=== PATIENT | female | born 1945 | race Caucasian/White ===

== ENCOUNTER 2020-10-06 08:21 | Inpatient (IN) | payer OTHER ==
[~2020-10-06] VITALS: Ht 162.6 cm; Wt 60.8 kg
[2020-10-06 08:39] VITALS: BP 170/96
[2020-10-06] MEDS ORDERED: VENTOLIN HFA 1818 GM INH (08:44)
[2020-10-06] MEDS ORDERED: K-DUR 20 MEQ T20 MEQ PO (08:44)
[2020-10-06] MEDS ORDERED: FOLIC ACID1 MG PO (08:45)
[2020-10-06 09:17] LABS: CALCIUM 8.8 mg/dL (8.5-10.1); CREATININE 0.9 mg/dL (0.6-1.3); POTASSIUM 3.6 mmol/L (3.5-5.1)
--- NOTE | 2020-10-06 09:19 | EKG ---
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 Lateral ischemia cannot be excluded. No previous ECG available for comparison Consider right arm left arm lead misplacement. Electronically Signed On 10-06-2020 9:18:44 CDT by Demetrio Farah [email or web address] <ELECTRONICALLY SIGNED> By: Boaz Farah MD, [facility] 10/06/20 0918 0850 0850 Boaz Farah MD, [facility] /EPI
[2020-10-06 09:20] LABS: ABSOLUTE BASOPHILS 0.1 thou/uL (0.0-0.2); ABSOLUTE EOSINOPHILS 0.2 thou/uL (0.0-0.7); ABSOLUTE LYMPHOCYTES 1.4 thou/uL (0.8-5.3); ABSOLUTE MONOCYTES 0.5 thou/uL (0.0-1.2); ABSOLUTE NEUTROPHILS 3.8 thou/uL (1.6-8.1); BASOPHILS 1.2 %; EOSINOPHILS 2.7 %; HEMATOCRIT 47.5 % (37.0-47.0); HEMOGLOBIN 16.4 gm/dL (12.0-15.0); LYMPHOCYTES 22.9 %; MCH 32.6 pg (26.0-34.0); MCHC 34.4 g/dL (28.0-37.0); MCV 94.6 fL (80.0-100.0); MONOCYTES 9.1 %; MPV 9.5 fl. (7.2-11.1); NUCLEATED RBCS 0 /100WBC; PLATELET COUNT* 152 thou/uL (150-400); POLYS 64.1 %; RBC 5.02 mil/uL (4.20-5.00); RDW-CV 15.5 % (10.5-14.5)
[2020-10-06 15:15] VITALS: BP 160/100
[2020-10-06 21:32] LABS: BE -3.5 mmol/L (-2 to +3); PCO2 24.1 mmHg (35.0-45.0); pH 7.482 (7.340-7.450)
[2020-10-06 21:36] LABS: PO2 58.5 mmHg (75.0-100.0)
[2020-10-06 23:33] LABS: BE -2.9 mmol/L (-2 to +3); PO2 76.3 mmHg (75.0-100.0); pH 7.446 (7.340-7.450)
[2020-10-07 01:11] LABS: TC:HDL 2.2 Ratio (Not establshd); TRIGLYCERIDE 52 mg/dL (<150); VLDL 10 mg/dL (<40)
[2020-10-07 01:12] LABS: CHOLESTEROL 133 mg/dL (<200); HDL CHOLESTEROL 60 mg/dL (>40); LDL CHOLESTEROL 63 mg/dL (<100)
[2020-10-07 01:14] LABS: SERUM ASSESSMENT CLEAR
[2020-10-07 01:22] LABS: INR 1.1; PROTIME 11.7 Seconds (9.20-11.50)
[2020-10-07 05:00] VITALS: BP 156/96
[2020-10-07 09:00] VITALS: BP 186/90
[2020-10-07 10:10] LABS: ABSOLUTE BASOPHILS 0.1 thou/uL (0.0-0.2); ABSOLUTE LYMPHOCYTES 0.9 thou/uL (0.8-5.3); ABSOLUTE MONOCYTES 0.4 thou/uL (0.0-1.2); ABSOLUTE NEUTROPHILS 6.2 thou/uL (1.6-8.1); BASOPHILS 0.9 %; EOSINOPHILS 0.1 %; HEMATOCRIT 48.2 % (37.0-47.0); HEMOGLOBIN 16.2 gm/dL (12.0-15.0); LYMPHOCYTES 12.4 %; MCH 32.3 pg (26.0-34.0); MCHC 33.7 g/dL (28.0-37.0); MCV 95.8 fL (80.0-100.0); MONOCYTES 5.8 %; MPV 10.1 fl. (7.2-11.1); NUCLEATED RBCS 0 /100WBC; PLATELET COUNT* 161 thou/uL (150-400); POLYS 80.8 %; RBC 5.03 mil/uL (4.20-5.00); RDW-CV 15.3 % (10.5-14.5); WBC 7.7 thou/uL (4.0-11.0)
[2020-10-07 10:31] LABS: ALBUMIN 3.4 g/dL (3.4-5.0); CALCIUM 8.5 mg/dL (8.5-10.1); CREATININE 1.1 mg/dL (0.6-1.3); POTASSIUM 3.9 mmol/L (3.5-5.1); TOTAL BILIRUBIN 0.8 mg/dL (<0.1-1.0); TOTAL PROTEIN 6.9 g/dL (6.4-8.2)
[2020-10-07 13:22] LABS: BE -1.6 mmol/L (-2 to +3); PCO2 29.7 mmHg (35.0-45.0); pH 7.461 (7.340-7.450)
[2020-10-07 13:28] LABS: PO2 55.6 mmHg (75.0-100.0)
[2020-10-07 13:30] VITALS: BP 150/94
[2020-10-07 17:00] VITALS: BP 147/92
[2020-10-07 20:00] VITALS: BP 137/88
[2020-10-07 20:43] VITALS: BP 147/92
[2020-10-08 00:46] VITALS: BP 144/84
--- NOTE | 2020-10-08 02:27 | NUR ---
PT ADMIT TO 2 EAST RM 227. PT ALERT ORIENTED. UP WITH STD BY ASSIST. TELEMETRY SHOWS SR. DENIES PAIN. O2 AT 15 LITERS HIGH FLOW. BIPAP HS.
[2020-10-08 04:10] VITALS: BP 165/95
--- NOTE | 2020-10-08 07:15 | NUR ---
CHNAGE OF SHIFT REPORT GIVEN PATIENT SEEN AT BEDSIDE IN BED WATCHING TV ASSUMED PATIENT CARE
[2020-10-08 08:00] VITALS: BP 147/88
[2020-10-08 12:00] VITALS: BP 167/93
--- NOTE | 2020-10-08 14:26 | NUR ---
CM ASSESSMENT: PT A&O, INDEPENDENT WITH ADL'S, AND ACTIVE. 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 PT USES THE [employer] BUS FOR 'S APPTS. PT RESIDES AT HOME ALONE. PT USES 5L O2 AT BASELINE PROVIDED BY [facility]. PT HAS 0 HX OF HH. PT HAS PAST HX OF SNF OVER A YEAR AGO BEFORE SHE MOVED HER TO [place]. NO CM D/C PLANNING NEEDS ANTICIPATED. CM WILL REMAIN AVAILABLE TO ASSIST AND FOLLOW NEEDED.
[2020-10-08 16:00] VITALS: BP 148/83
[2020-10-08 20:00] VITALS: BP 154/92
[2020-10-09] VITALS: BP 157/89
[2020-10-09 04:00] VITALS: BP 150/93
[2020-10-09 04:07] LABS: HEMOGLOBIN 15.6 gm/dL (12.0-15.0); MCH 32.5 pg (26.0-34.0); MCHC 33.9 g/dL (28.0-37.0); MCV 95.8 fL (80.0-100.0); MPV 9.8 fl. (7.2-11.1); NUCLEATED RBCS 0 /100WBC; PLATELET COUNT* 160 thou/uL (150-400); RBC 4.81 mil/uL (4.20-5.00); RDW-CV 15.2 % (10.5-14.5); WBC 8.9 thou/uL (4.0-11.0)
[2020-10-09 04:17] LABS: ALBUMIN 2.8 g/dL (3.4-5.0); CALCIUM 8.3 mg/dL (8.5-10.1); CREATININE 0.8 mg/dL (0.6-1.3); POTASSIUM 4.5 mmol/L (3.5-5.1); TOTAL BILIRUBIN 0.4 mg/dL (<0.1-1.0); TOTAL PROTEIN 6.2 g/dL (6.4-8.2)
--- NOTE | 2020-10-09 04:21 | NUR ---
PT ALERT ORIENTED ANXIOUS. ON 15 L HIGH FLOW NC. DENIES PAIN. SR BBB. UP WITH ONE PERSON ASSIST TO BSC.
[2020-10-09 04:58] LABS: ABSOLUTE LYMPHOCYTES 0.4 thou/uL (0.8-5.3); ABSOLUTE MONOCYTES 0.2 thou/uL (0.0-1.2); ABSOLUTE NEUTROPHILS 8.4 thou/uL (1.6-8.1); PLATELET ESTIMATE ADEQUATE
[2020-10-09 07:29] LABS: PCO2 27.7 mmHg (35.0-45.0); pH 7.437 (7.340-7.450)
[2020-10-09 09:00] VITALS: BP 120/72
[2020-10-09 12:00] VITALS: BP 135/76
--- NOTE | 2020-10-09 14:22 | NUR ---
PLAN OF CARE: PHYSICIAN INFORMS THAT THE PT IS NOT MEDICALLY STABLE AT THIS TIME. PT CONTINUES TO HAVE INCREASED OXYGEN NEEDS. PT NOW ON 15L O2, AND IS ON 5L O2 AT BASELINE AT HOME. PT'S DTR REQUEST HH FOR THE PT AT D/C, AND PT MAY BENEFIT FROM THIS AT D/C. CM WILL REMAIN AVAILABLE TO ASSIST AND FOLLOW WITH D/C PLANNING NEEDED.
[2020-10-09 16:00] VITALS: BP 150/94
[2020-10-09 20:00] VITALS: BP 145/82
[2020-10-10 01:08] VITALS: BP 158/82
[2020-10-10 04:58] VITALS: BP 147/83
--- NOTE | 2020-10-10 08:11 | NUR ---
PT ALERT ORIENTED. UP TO BSC WITH STD BY ASSIST. TRAINING EXECUTIVE TRACING SR. DENIES PAIN. O2 AT 15 LITERS HIGH FLOW. BIPAP HS.
--- NOTE | 2020-10-10 10:14 | NUR ---
CM UPDATE: PT REMAINS ON 15L HIGH FLOW O2 AND ONLY USED 5L O2 AT BASELINE PRIOR TO ADMIT PROVIDED BY [facility]. D/C PLANNING NEEDS FOR THIS PT ARE TBD AT THIS TIME. CM PROVIDED HH INFO TO PT'S DTR PER HER REQUEST. CM WILL REMAIN AVAILABLE TO ASSIST AND FOLLOW NEEDED.
[2020-10-10 12:06] VITALS: BP 153/86
--- NOTE | 2020-10-10 15:59 | NUR ---
Was contacted by daughter, Brittney (Dada Ott regarding stroke education provided to her mother, Laurel. Ms. Ott has requested that information regarding care be directed to her, the dtr, because her mother misinterpreted the information provided to her. Ms. Ott also reported that she had knowledge of stroke and did not require further information at this time. I assured her that I would put a note on her Mother's chart indicating this request and this was done shortly after the call, I also informed Case Management, and the RN caring for the patient at the time-10/10/20, 1600.
[2020-10-10 16:36] VITALS: BP 158/91
[2020-10-10 20:00] VITALS: BP 136/84
[2020-10-11 00:52] VITALS: BP 153/106
[2020-10-11 04:25] VITALS: BP 142/80
--- NOTE | 2020-10-11 05:50 | NUR ---
ASSUMED PT CARE AT 1910. NURSING ASSESSMENT COMPLETED AT START OF SHIFT. PT VOICED NO CONCERNS. SR ON DEFENSIVE LINE COACH. CALL LIGHT WITHIN REACH. FALL PRECAUTIONS IN PLACE.
[2020-10-11 08:00] VITALS: BP 136/95
[2020-10-11 12:01] VITALS: BP 129/83
[2020-10-11 12:02] LABS: BE 0.1 mmol/L (-2 to +3); PCO2 29.8 mmHg (35.0-45.0); pH 7.487 (7.340-7.450)
[2020-10-11 12:04] LABS: PO2 54.9 mmHg (75.0-100.0)
--- NOTE | 2020-10-11 15:12 | NUR ---
PLAN OF CARE: PHYSICIAN INFORMS THAT THE PT IS NOT MEDICALLY STABLE AT THIS TIME. PT REMAINS ON 15L HIGH FLOW O2, AND ONLY USED 5L O2 AT BASELINE. CM WILL REMAIN AVAILABLE TO ASSIST AND FOLLOW NEEDED.
--- NOTE | 2020-10-11 16:43 | 2DMMODE ---
[place] [address] 2 D/M-MODE ECHOCARDIOGRAM Name: JOSE LUIS WHYTE Room: [facility] ADM IN [facility]#: [id number] Admission: 10/07/20 Attend Phys: Kavon Renteria Discharge: Date of : 43 Date of Service: 10/11/20 1643 Report #: [id number] THIS REPORT FOR: cc: Jenni Branch MD, Kandice L. MD Liston, Michael J. MD [facility] ~ ADDENDUM APPROVED REPORT Study performed: 10/08/2020 10:50:28 EXAM: Comprehensive 2D, Doppler, and color-flow Echocardiogram Patient Location: In-Patient Room #: 227 Status: routine BSA: 1.59 HR: 82 bpm BP: 165/95 mmHg Rhythm: NSR Other Information Study Quality: Good Indications Pulmonary Embolism Dyspnea Echo Enhancing Agent Indication: Rule out Shunt Agent(s) / Amount(s) Used: Agitated Saline 10 cc 2D Dimensions IVSd: 10.05 (7-11mm) LVOT Diam: 19.64 (18-24mm) LVDd: 40.51 mm PWd: 8.62 (7-11mm) Ascending Ao: 30.44 (22-36mm) LVDs: 29.07 (25-40mm) Aortic Root: 33.36 mm Volumes Left Atrial Volume (Systole) LA ESV Index: 33.40 mL/m2 Aortic Valve AoV Peak Nils.: 0.82 m/s AO Peak Gr.: 2.68 mmHg LVOT Max P.[address] [address] 2 D/M-MODE ECHOCARDIOGRAM Name: ISABELLJOSE LUIS Tesha Room: [address] IN [facility]#: [id number] Admission: 10/07/20 Attend Phys: Kavon Renteria Discharge: Date of : 43 Date of Service: 10/11/20 1643 Report #: [id number] Mean Gr.: 1.59 mmHg LVOT Mean P.80 mmHg LVOT Max V: 0.58 m/s AO V2 VTI: 12.63 cm LVOT Mean V: 0.42 m/s BE (VTI): 2.78 cm2 LVOT V1 VTI: 11.59 cm Mitral Valve E/A Ratio: 0.60 MV E Max Nils.: 0.64 m/s TDI E/Lateral E': 10.67 Lateral E' Nils.: 0.06 m/s Pulmonary Valve PV Peak Nils.: 0.72 m/s PV Peak Gr.: 2.06 mmHg Tricuspid Valve RAP Estimate: 5.00 mmHg TR Peak Gr.: 74.32 mmHg RVSP: 79.00 mmHg PA Pressure: 79.00 mmHg Left Ventricle The left ventricle is normal size. There is normal LV segmental wall motion. There is normal left ventricular wall thickness. Left ventricular systolic function is normal. The left ventricular ejection fraction is within the normal range. LVEF is 50-55%. Grade I - abnormal relaxation pattern. Right Ventricle Right ventricle is moderately dilated. Right ventricle is moderately hypokinetic. Right heart pacing catheter is noted Atria The left atrium size is normal. There is significant and prompt right to left shunting noted with the injection of agitated saline contrast suggesting significant PFO or atrial septal defect. Right atrium is mildly dilated. Aortic Valve The aortic valve is normal in structure. No aortic regurgitation is present. There is no aortic valvular stenosis. Mitral Valve The mitral valve is normal in structure. Mild mitral regurgitation. No evidence [place] [address] 2 D/M-MODE ECHOCARDIOGRAM Name: JOSE LUIS WHYTE Room: [address] IN [facility]#: [id number] Admission: 10/07/20 Attend Phys: Kavon Renteria Discharge: Date of : 43 Date of Service: 10/11/20 1643 Report #: [id number] Tricuspid Valve The tricuspid valve is normal in structure. Moderate tricuspid regurgitation. The RVSP is 75 consistent with severe pulmonary hypertension Pulmonic Valve The pulmonary valve is normal in structure. Trace pulmonic regurgitation. Great Vessels The aortic root is normal in size. IVC is normal in size and collapses >50% with inspiration. Pericardium There is no pericardial effusion. <Conclusion> The left ventricle is normal size. There is normal left ventricular wall thickness. Left ventricular systolic function is normal. The left ventricular ejection fraction is within the normal range. LVEF is 50-55%. Right ventricle is moderately dilated. Right ventricle is moderately hypokinetic. The left atrium size is normal. Right atrium is mildly dilated. The aortic valve is normal in structure. The mitral valve is normal in structure. Mild mitral regurgitation. The tricuspid valve is normal in structure. Moderate tricuspid regurgitation. The RVSP is 75 consistent with severe pulmonary hypertension IVC is normal in size and collapses >50% with inspiration. There is no pericardial effusion. There is normal LV segmental wall motion. Right heart pacing catheter is noted There is significant and prompt right to left shunting noted with the injection of agitated saline contrast suggesting significant PFO or atrial septal defect. <ELECTRONICALLY SIGNED> By: Sarwat Ashton MD, FACC 10/11/20 1643 164 164 Sarwat Ashton MD, FACC /INF
[2020-10-11 19:37] VITALS: BP 148/89
[2020-10-11 20:15] VITALS: BP 154/95
[2020-10-12 04:05] VITALS: BP 142/91
[2020-10-12 04:59] LABS: HEMATOCRIT 49.2 % (37.0-47.0); HEMOGLOBIN 16.7 gm/dL (12.0-15.0); MCH 32.2 pg (26.0-34.0); MCHC 33.9 g/dL (28.0-37.0); MCV 95.1 fL (80.0-100.0); MPV 9.8 fl. (7.2-11.1); RBC 5.17 mil/uL (4.20-5.00); RDW-CV 15.6 % (10.5-14.5); WBC 6.9 thou/uL (4.0-11.0)
[2020-10-12 05:13] LABS: CALCIUM 8.4 mg/dL (8.5-10.1); CREATININE 0.9 mg/dL (0.6-1.3); POTASSIUM 4.5 mmol/L (3.5-5.1)
--- NOTE | 2020-10-12 05:17 | NUR ---
PT A&O X 4. O2 SAT 90% ON 4OL VIA HHF THEN BIPAP @ NOC. NO C/O PAIN. MEDS GIVEN ORDERED. UP TO BSC WITH SBA. CALL LIGHT WITHIN REACH. WILL CONTINUE TO MONITOR.
[2020-10-12 08:00] VITALS: BP 144/83
[2020-10-12 12:00] VITALS: BP 155/80
--- NOTE | 2020-10-12 15:01 | NUR ---
PLAN OF CARE: PHYSICIAN INFORMS OF PLAN FOR THE PT TO REMAIN INPT THROUGH THE WEEKEND. PT REMAINS TELE STATUS AND ON 40L OXYGEN AND 99% FIO2. CM D/C PLANNING NEEDS FOR THE PT REMAIN TBD AT THIS TIME. CM WILL REMAIN AVAILABLE TO ASSIST AND FOLLOW NEEDED.
[2020-10-12 18:06] LABS: ANA INTERPRETATION Negative (())
[2020-10-12 20:00] VITALS: BP 160/89
[2020-10-13] VITALS (8 sets, daily range): BP systolic 135–177; BP diastolic 78–118
[2020-10-13 04:30] LABS: MCH 31.6 pg (26.0-34.0); MCHC 33.3 g/dL (28.0-37.0); MCV 94.8 fL (80.0-100.0); MPV 9.6 fl. (7.2-11.1); RBC 5.38 mil/uL (4.20-5.00); RDW-CV 15.1 % (10.5-14.5); WBC 8.5 thou/uL (4.0-11.0)
[2020-10-13 04:36] LABS: CREATININE 0.8 mg/dL (0.6-1.3); POTASSIUM 4.6 mmol/L (3.5-5.1)
[2020-10-14 03:59] VITALS: BP 154/87
--- NOTE | 2020-10-14 04:41 | NUR ---
ASSUMED PT CARE AT APPROX 1930. PT IS AWAKE AND ORIENTED X4, FORGETFUL AT TIMES. PT IS TRACING SR ON THE NITROGLYCERIN NEUTRALIZER. O2 SUPPORT MAINTAINED AT 15L/HFC TO KEEP sPO2 >90%. PT DESATURATES TO THE MID 80'S WITH ACTIVITY. PT ENCOURAGED TO TAKE SLOW DEEP BREATHS. PT IS CLOSELY MONITORED. FALL PRECAUTIONS IN PLACE. CALL LIGHT WITHI REACH.
[2020-10-14 09:00] VITALS: BP 147/84
[2020-10-14 12:19] VITALS: BP 115/69
[2020-10-14 16:00] VITALS: BP 145/74
[2020-10-14 20:00] VITALS: BP 132/72
[2020-10-15] VITALS: BP 151/832
[2020-10-15 04:00] VITALS: BP 145/88
--- NOTE | 2020-10-15 06:35 | NUR ---
ASUSMED PT CARE AT APPROX 1930. PT IS AWAKE AND ORIENTED X4. PT IS TRACING SR ON THE COMPUTER HELP DESK REPRESENTATIVE. PT IS KEPT ON 10L OF O2/HFC TO KEEP spO2 >92%, PT STILL DESATURATES TO THE MID 80'S WITH ACTIVITY. NO ACUTE CHANGES THIS SHIFT. CALL LIGHT WITHIN REACH. HOURLY ROUNDING DONE FOR PT SAFETY.FALL PRECAUTIONS IN PLACE.
[2020-10-15 08:00] VITALS: BP 128/67; BP 154/93
[2020-10-15 12:00] VITALS: BP 137/76
[2020-10-15 13:18] LABS: ABSOLUTE LYMPHOCYTES 0.1 thou/uL (0.8-5.3); ABSOLUTE MONOCYTES 0.5 thou/uL (0.0-1.2); ABSOLUTE NEUTROPHILS 9.4 thou/uL (1.6-8.1); BASOPHILS 0.4 %; EOSINOPHILS 0.1 %; HEMOGLOBIN 16.9 gm/dL (12.0-15.0); LYMPHOCYTES 1.4 %; MCH 31.4 pg (26.0-34.0); MCHC 33.1 g/dL (28.0-37.0); MCV 94.8 fL (80.0-100.0); MONOCYTES 4.8 %; MPV 9.3 fl. (7.2-11.1); NUCLEATED RBCS 0 /100WBC; PLATELET COUNT* 177 thou/uL (150-400); POLYS 93.3 %; RBC 5.38 mil/uL (4.20-5.00); RDW-CV 15.7 % (10.5-14.5); WBC 10.1 thou/uL (4.0-11.0)
--- NOTE | 2020-10-15 13:30 | NUR ---
PLAN OF CARE: PHYSICIAN INFORMS THAT THE PT IS NOT MEDICALLY STABLE FOR D/C AT THIS TIME. PT REMAINS ON 10L-15L O2, AND ONLY USES 5L O2 AT BASELINE AT HOME. PT CONTINUES TO HAVE INCREASED O2 NEEDS WITH ACTIVITY. PT/OT/ST DEBBIE COMPLETED AND INPT ARU CONSULT PENDING. PULM CONSULTED. CM D/C PLANNING NEEDS TBD AT THIS TIME. CM WILL REMAIN AVAILABLE TO ASSIST AND FOLLOW NEEDED.
[2020-10-15 13:33] LABS: ALBUMIN 3.1 g/dL (3.4-5.0); CREATININE 0.8 mg/dL (0.6-1.3); MAGNESIUM 2.2 mg/dL (1.8-2.4); POTASSIUM 4.4 mmol/L (3.5-5.1); TOTAL BILIRUBIN 1.2 mg/dL (<0.1-1.0); TOTAL PROTEIN 6.1 g/dL (6.4-8.2)
--- NOTE | 2020-10-15 13:58 | NUR ---
Nutrition: Pt admitted with dyspnea, pulmonary emboli. Seen for LOS. Pt eating well on heart healthy diet. She had a few questions over low Na diet - we discussed. All questions answered today. Wt: 125#. Meds, labs noted. H/o COPD. Assessed at low nutrition risk.
[2020-10-15 16:00] VITALS: BP 153/84
[2020-10-15 20:00] VITALS: BP 134/77
[2020-10-16 00:29] VITALS: BP 146/82
[2020-10-16 03:47] VITALS: BP 155/84
[2020-10-16 04:25] LABS: HEMATOCRIT 48.7 % (37.0-47.0); HEMOGLOBIN 16.2 gm/dL (12.0-15.0); MCH 31.4 pg (26.0-34.0); MCHC 33.2 g/dL (28.0-37.0); MCV 94.5 fL (80.0-100.0); MPV 9.7 fl. (7.2-11.1); NUCLEATED RBCS 0 /100WBC; PLATELET COUNT* 176 thou/uL (150-400); RBC 5.16 mil/uL (4.20-5.00); RDW-CV 15.3 % (10.5-14.5); WBC 7.8 thou/uL (4.0-11.0)
[2020-10-16 04:29] LABS: ALBUMIN 2.9 g/dL (3.4-5.0); CREATININE 0.9 mg/dL (0.6-1.3); MAGNESIUM 2.1 mg/dL (1.8-2.4); POTASSIUM 4.4 mmol/L (3.5-5.1); TOTAL BILIRUBIN 1.1 mg/dL (<0.1-1.0); TOTAL PROTEIN 5.6 g/dL (6.4-8.2)
--- NOTE | 2020-10-16 05:47 | NUR ---
ASSUMED PT CARE AT APPROX 1930. PT IS AWAKE AND ORIENTED X4, PT IS TRACING SR ON THE MAINSPRING TORQUE TESTER. O2 SUPPORT MAINTAINED AT 15L/HFC TO KEEP sPO2 >90%. PT DESATURATES TO THE MID 80'S WITH ACTIVITY. PT ENCOURAGED TO TAKE SLOW DEEP BREATHS. PT IS CLOSELY MONITORED. FALL PRECAUTIONS IN PLACE. CALL LIGHT WITHI REACH.
[2020-10-16 05:56] LABS: ABSOLUTE LYMPHOCYTES 0.3 thou/uL (0.8-5.3); ABSOLUTE NEUTROPHILS 7.5 thou/uL (1.6-8.1); ANISOCYTOSIS 1+; PLATELET ESTIMATE ADEQUATE; POIKILOCYTOSIS 1+
[2020-10-16 08:15] VITALS: BP 132/78
[2020-10-16 12:00] VITALS: BP 148/81
--- NOTE | 2020-10-16 14:56 | NUR ---
PLAN OF CARE: PHYSICIAN INFORMS OF PLAN FOR THE PT TO D/C TO SNF WHEN PT MORE MEDICALLY STABLE AND ABLE TO WEAN DOWN PT'S OXYGEN NEEDS. CM TO DISCUSS THIS WITH THE PT AND HER DTR. CM WILL REMAIN AVAILABLE TO ASSIST AND FOLLOW NEEDED.
[2020-10-16 16:00] VITALS: BP 136/82
[2020-10-16 20:00] VITALS: BP 162/92
[2020-10-17] VITALS: BP 152/93
[2020-10-17 04:00] VITALS: BP 166/88
[2020-10-17 04:20] LABS: ABSOLUTE LYMPHOCYTES 0.3 thou/uL (0.8-5.3); ABSOLUTE MONOCYTES 0.3 thou/uL (0.0-1.2); ABSOLUTE NEUTROPHILS 7.9 thou/uL (1.6-8.1); BASOPHILS 0.1 %; HEMATOCRIT 45.9 % (37.0-47.0); HEMOGLOBIN 15.8 gm/dL (12.0-15.0); LYMPHOCYTES 3.4 %; MCH 32.1 pg (26.0-34.0); MCHC 34.4 g/dL (28.0-37.0); MCV 93.5 fL (80.0-100.0); MONOCYTES 3.3 %; MPV 9.2 fl. (7.2-11.1); NUCLEATED RBCS 0 /100WBC; PLATELET COUNT* 166 thou/uL (150-400); POLYS 93.2 %; RBC 4.92 mil/uL (4.20-5.00); RDW-CV 14.9 % (10.5-14.5); WBC 8.5 thou/uL (4.0-11.0)
[2020-10-17 04:34] LABS: ALBUMIN 2.8 g/dL (3.4-5.0); CALCIUM 7.9 mg/dL (8.5-10.1); CREATININE 0.9 mg/dL (0.6-1.3); MAGNESIUM 2.2 mg/dL (1.8-2.4); POTASSIUM 4.7 mmol/L (3.5-5.1); TOTAL BILIRUBIN 1.3 mg/dL (<0.1-1.0); TOTAL PROTEIN 5.2 g/dL (6.4-8.2)
--- NOTE | 2020-10-17 06:31 | NUR ---
NO ACUTE CHANGES THIS SHIFT. PT IS AWAKE AND ORIENTED X4, PT IS TRACING SR ON THE INSURANCE CLAIMS CLERK. O2 SUPPORT MAINTAINED AT 15L/HFC TO KEEP sPO2 >90%. PT DESATURATES TO THE MID 80'S WITH ACTIVITY. PT ENCOURAGED TO TAKE SLOW DEEP BREATHS. PT IS CLOSELY MONITORED. FALL PRECAUTIONS IN PLACE. CALL LIGHT WITHIN REACH.
[2020-10-17 08:00] VITALS: BP 137/76
--- NOTE | 2020-10-17 11:18 | NUR ---
ASSUMED CARE OF PT AT 0730. PT A&0X4, DENIES ANY PAIN OR SHORTNESS OF BREATH AT THIS TIME. TRACING SR ON THE LINEMAN A CLASS. ON 15L HIGH FLOW NC SAT 92%. PT UP AD KATHERINE BSC. PULM CONSULT IN PLACE. PT GOAL FOR TODAY IS INCREASE ACTIVITY, TITRATE OXYGEN AND IV STEROIDS. AM ASSESSMENT CHARTED. MEDICATIONS PER MAY. PT REPOSITIONS SELF WITH REMINDERS. HOURLY ROUNDING OBSERVED. BED IN LOW POSITION. CALL LIGHT WITHIN REACH. WILL CONTINUE PLAN OF CARE.
[2020-10-17 12:00] VITALS: BP 135/89
--- NOTE | 2020-10-17 15:20 | NUR ---
PLAN OF CARE: PHYSICIAN INFORMS THAT PT IS NOT MEDICALLY STABLE AT THIS TIME. PT REMAINS ON 15L O2. PT WILL LIKELY NEED SNF WHEN MEDICALLY STABLE AND ABLE TO WEAN HER O2 NEEDS DOWN UNDER 10L. CM WILL REMAIN AVAILABLE TO ASSIST AND FOLLOW NEEDED.
[2020-10-17 16:00] VITALS: BP 143/79
[2020-10-17 20:00] VITALS: BP 122/82
[2020-10-18] VITALS (7 sets, daily range): BP systolic 128–150; BP diastolic 75–93
[2020-10-18 05:10] LABS: ALBUMIN 3.1 g/dL (3.4-5.0); CALCIUM 8.3 mg/dL (8.5-10.1); CREATININE 0.9 mg/dL (0.6-1.3); MAGNESIUM 2.3 mg/dL (1.8-2.4); POTASSIUM 4.5 mmol/L (3.5-5.1); TOTAL BILIRUBIN 1.1 mg/dL (<0.1-1.0); TOTAL PROTEIN 5.9 g/dL (6.4-8.2)
--- NOTE | 2020-10-18 07:02 | NUR ---
NO ACUTE CHANGES THIS SHIFT. PT IS AWAKE AND ORIENTED X4, PT IS TRACING SR ON THE SENIOR COST ACCOUNTANT. O2 SUPPORT MAINTAINED AT 15L/HFC TO KEEP sPO2 >90%. PT DESATURATES TO THE MID 80'S WITH ACTIVITY. PT ENCOURAGED TO TAKE SLOW DEEP BREATHS. PT IS CLOSELY MONITORED. FALL PRECAUTIONS IN PLACE. CALL LIGHT WITHIN REACH.
--- NOTE | 2020-10-18 11:18 | NUR ---
ASSUMED CARE OF PT AT 0730. PT A&0X4, DENIES ANY PAIN OR SHORTNESS OF BREATH AT THIS TIME. TRACING SR ON THE FLASK CLEANER. ON 15L HIGH FLOW NC SAT LOW 90'S. PT WORKED WITH PHYSICAL THERAPY THIS AM AND PER PHYSICAL THERAPIST-PT WAS VERY UNSTEADY WITH AND WITHOUT WALKER- USING WALL TO BALANCE SELF. EDUCATION GIVEN TO PT REGARDING CALLING FOR ASSIST AND BED ALARM PLACED. PT GOAL FOR TODAY IS CALL FOR ASSIST, TITRATE OXYGEN AND INCREASE ACTIVITY. AM ASSESSMENT CHARTED. MEDICATIONS PER MAY. PT REPOSITIONS SELF. HOURLY ROUNDING OBSERVED. BED IN LOW POSITION. BED ALARM IN PLACE. FALL PRECAUTIONS IN PLACE. CALL LIGHT WITHIN REACH. WILL CONTINUE PLAN OF CARE.
--- NOTE | 2020-10-18 15:05 | NUR ---
THIS HEAD BUCKER IS IN AGREEMENT WITH DOCUMENTED TX NOTE BY SAFIA MELGOZA FOR THIS DAY. TERESA PEREST
--- NOTE | 2020-10-18 15:26 | NUR ---
PLAN OF CARE: PHYSICIAN INFORMS THAT THE PT IS NOT MEDICALLY STABLE AT THIS TIME. CM TO SEND PRELIMINARY INFO TO [facility] TO DETERMINE ABILITY TO GET LTACH PLACEMENT FOR THE PT. CM WILL REMAIN AVAILABLE TO ASSIST AND FOLLOW NEEDED.
[2020-10-19] VITALS: BP 151/88
[2020-10-19 04:00] VITALS: BP 134/74
--- NOTE | 2020-10-19 04:06 | NUR ---
PT ALERT ORIENTED. UP WITH STD BY ASSIST TO BSC. O2 IS AT 15 LITERS HIGH FLOW. O2 SAT 90%
[2020-10-19 04:45] LABS: ABSOLUTE LYMPHOCYTES 0.5 thou/uL (0.8-5.3); ABSOLUTE MONOCYTES 0.6 thou/uL (0.0-1.2); ABSOLUTE NEUTROPHILS 8.6 thou/uL (1.6-8.1); BASOPHILS 0.1 %; EOSINOPHILS 0.1 %; HEMATOCRIT 47.8 % (37.0-47.0); LYMPHOCYTES 5.3 %; MCH 31.8 pg (26.0-34.0); MCHC 33.5 g/dL (28.0-37.0); MCV 94.9 fL (80.0-100.0); MONOCYTES 6.4 %; MPV 9.3 fl. (7.2-11.1); NUCLEATED RBCS 0 /100WBC; PLATELET COUNT* 164 thou/uL (150-400); POLYS 88.1 %; RBC 5.04 mil/uL (4.20-5.00); RDW-CV 15.2 % (10.5-14.5); WBC 9.8 thou/uL (4.0-11.0)
[2020-10-19 04:57] LABS: CALCIUM 8.2 mg/dL (8.5-10.1); CREATININE 0.9 mg/dL (0.6-1.3); MAGNESIUM 2.2 mg/dL (1.8-2.4)
[2020-10-19 08:00] VITALS: BP 115/64
[2020-10-19 12:00] VITALS: BP 113/57
--- NOTE | 2020-10-19 15:28 | NUR ---
PLAN OF CARE: PHYSICIAN INFORMS OF PLAN FOR THE PT TO D/C TO SNF PENDING ABILITY TO WEAN PT'S OXYGEN DOWN UNDER 10L. PT CURRENTLY ON 12L O2. PLAN FOR THE PT TO REMAIN INPT THROUGH THE WEEKEND. CM WILL REMAIN AVAILABLE TO ASSIST AND FOLLOW NEEDED.
[2020-10-19 16:00] VITALS: BP 104/71
[2020-10-19 20:00] VITALS: BP 125/70
[2020-10-20 00:15] VITALS: BP 120/79
--- NOTE | 2020-10-20 04:09 | NUR ---
PT ALERT ORIENTED. UP TO BSC WITH ASSIST OF ONE. AUTOMOTIVE POWER ELECTRONICS ENGINEER TRACING SR.
[2020-10-20 05:13] VITALS: BP 121/67
[2020-10-20 05:23] LABS: HEMATOCRIT 49.5 % (37.0-47.0); HEMOGLOBIN 16.3 gm/dL (12.0-15.0); MCH 31.3 pg (26.0-34.0); MCHC 32.9 g/dL (28.0-37.0); MCV 95.2 fL (80.0-100.0); MPV 9.4 fl. (7.2-11.1); NUCLEATED RBCS 0 /100WBC; PLATELET COUNT* 168 thou/uL (150-400); RDW-CV 15.1 % (10.5-14.5); WBC 6.8 thou/uL (4.0-11.0)
[2020-10-20 05:30] LABS: ALBUMIN 3.1 g/dL (3.4-5.0); CALCIUM 8.5 mg/dL (8.5-10.1); CREATININE 0.9 mg/dL (0.6-1.3); POTASSIUM 5.1 mmol/L (3.5-5.1); TOTAL BILIRUBIN 1.2 mg/dL (<0.1-1.0); TOTAL PROTEIN 5.8 g/dL (6.4-8.2)
[2020-10-20 08:00] VITALS: BP 115/62
[2020-10-20 08:30] LABS: ABSOLUTE LYMPHOCYTES 0.1 thou/uL (0.8-5.3); ABSOLUTE MONOCYTES 0.1 thou/uL (0.0-1.2); ABSOLUTE NEUTROPHILS 6.6 thou/uL (1.6-8.1); PLATELET ESTIMATE ADEQUATE
[2020-10-20 12:00] VITALS: BP 121/72
[2020-10-20 16:00] VITALS: BP 136/86
--- NOTE | 2020-10-20 18:32 | NUR ---
PT. AOX4, VSS, DENIES PAIN OR DISCOMFORT, UAL TO BATHROOM. CALL LIGHT AND PERSONAL BELONGINGS PLACED WITHIN REACH.
[2020-10-20 20:00] VITALS: BP 118/66
[2020-10-21 00:36] VITALS: BP 129/72
[2020-10-21 04:00] VITALS: BP 130/73
--- NOTE | 2020-10-21 04:49 | NUR ---
PT ALERT ORIENTED SOMEWHAT IMPULSIVE WITH GETTING OOB AND NOT WAITING FOR HELP. FALL PRECAUTIONS IN PLACE CALL LIGHT IN REACH. CAPSULE FILLING MACHINE OPERATOR TRACING SR. O2 AT 11.5 LITERS HEATED HIGHFLOW.
--- NOTE | 2020-10-21 06:15 | NUR ---
PT CO CONSTIPATION. MOM AND PRUNE JUICE GIVEN THIS AM.
[2020-10-21 08:00] VITALS: BP 128/81
[2020-10-21 12:00] VITALS: BP 149/68
[2020-10-21 16:00] VITALS: BP 139/72
--- NOTE | 2020-10-21 19:07 | NUR ---
PT. AOX4, VSS, DENIES PAIN OR DISCOMFORT. O2 AT 9L, RESPIRATORY STATUS IMPROVING. CALL LIGHT AND PERSONAL BELONGINGS PLACED WITHIN REACH. PT. IN BED, IN STABLE CONDITION, AT THIS TIME.
[2020-10-21 20:00] VITALS: BP 131/72
[2020-10-22] VITALS (7 sets, daily range): BP systolic 114–135; BP diastolic 59–79
[2020-10-22 04:47] LABS: ABSOLUTE LYMPHOCYTES 0.4 thou/uL (0.8-5.3); ABSOLUTE MONOCYTES 0.3 thou/uL (0.0-1.2); ABSOLUTE NEUTROPHILS 8.2 thou/uL (1.6-8.1); BASOPHILS 0.1 %; HEMATOCRIT 45.5 % (37.0-47.0); HEMOGLOBIN 15.4 gm/dL (12.0-15.0); LYMPHOCYTES 4.1 %; MCH 31.8 pg (26.0-34.0); MCHC 33.9 g/dL (28.0-37.0); MONOCYTES 3.1 %; MPV 9.2 fl. (7.2-11.1); NUCLEATED RBCS 0 /100WBC; PLATELET COUNT* 142 thou/uL (150-400); POLYS 92.7 %; RBC 4.84 mil/uL (4.20-5.00); RDW-CV 15.1 % (10.5-14.5); WBC 8.8 thou/uL (4.0-11.0)
[2020-10-22 04:59] LABS: CALCIUM 8.3 mg/dL (8.5-10.1); POTASSIUM 4.7 mmol/L (3.5-5.1)
--- NOTE | 2020-10-22 05:39 | NUR ---
PT SLEPT MOST OF SHIFT. ASSESSMENT DOCUMENTED. MEDS GIVEN PER E-MAR. IV PATENT. NO REPORTS OF PAIN. PT DID REPORT INDIGESTION, PRN MEDS GIVEN PER E-MAR WITH RELIEF. PT ON 10L NC WHILE AWAKE, BIPAP WHILE ASLEEP. PT ABLE TO MAKE NEEDS KNOWN. WILL CONTINUE WITH PLAN OF CARE.
[2020-10-22] MEDS ORDERED: XARELTO20 MG PO (08:13)
[2020-10-22] MEDS ORDERED: XARELTO15 MG PO (08:13)
[2020-10-22] MEDS ORDERED: PROTONIX40 M2 PO (08:16)
[2020-10-22] MEDS ORDERED: PREDNISONE 10 M10 MG PO (08:16)
--- NOTE | 2020-10-22 16:39 | NUR ---
PHYSICIAN INFORMS OF PLAN FOR PT TO D/C TODAY PENDING R.T. REST AND EX OX. R.T. TESTING INDICATES THAT THE PT REQUIRES 15L O2 WITH ACTIVITY. PHYSICIAN INFORMED AND PLAN TO HOLD PT'S D/C. CM WILL REMAIN AVAILABLE TO ASSIST AND FOLLOW NEEDED.
[2020-10-23 01:15] VITALS: BP 115/60
[2020-10-23 04:37] VITALS: BP 111/63
[2020-10-23 07:30] VITALS: BP 132/67
[2020-10-23 12:00] VITALS: BP 115/52
--- NOTE | 2020-10-23 14:05 | NUR ---
PLAN OF CARE: PHYSICIAN INFORMS THAT PT NOT MEDICALLY STABLE. PT REMAINS ON 9L-10L O2 AT REST AND PREVIOUS DAYS R.T. TESTING INIDICATED THAT THE PT REQUIRED 15L O2 WITH ACTIVITY AND 'IT'S TOO SOON TO RE-TEST PER PHYSICIAN'. PT WILL NEED AN INCREASE IN OXYGEN WITH HER CURRENT DME O2 SUPPLIER [facility] AND CM ASSITING WITH ARRANGING ASTRAL (NON-INVASIVE VENTALATOR) WITH [facility]. CM ALSO ASSISTING WITH ARRNAGING HH FOR THE PT. CM WILL REMAIN AVAILABLE TO ASSIST AND FOLLOW NEEDED.
[2020-10-23 16:00] VITALS: BP 113/55
[2020-10-23 20:00] VITALS: BP 128/68
[2020-10-24] VITALS: BP 133/74
[2020-10-24 04:00] VITALS: BP 131/60
[2020-10-24 09:00] VITALS: BP 102/52
[2020-10-24 12:33] VITALS: BP 118/62
--- NOTE | 2020-10-24 16:29 | NUR ---
PLAN OF CARE: PHYSICIAN INFORMS THAT THE PT IS NOT MEDICALLY STABLE FOR D/C TODAY. R.T. COMPLETED REST AND EXERCISE TESTING COMPLTED AND INDICATES THAT THE PT CONTINUES TO REQUIRE 9L-10L AT REST AND 15L O2 WITH ACTIVITY. PT'S DTR INFORMS THAT SHE WILL BE 'TAKING MY MOTHER HOME NO MATTTER WHAT'. CM WORKING WITH [facility] TO GET ASTRAL AND INCREASED 02. CM WILL REMAIN AVAILABLE TO ASSIST AND FOLLOW NEEDED.
[2020-10-24 16:43] VITALS: BP 111/62
[2020-10-24 20:00] VITALS: BP 103/53
[2020-10-25] VITALS (9 sets, daily range): BP systolic 102–140; BP diastolic 51–70
[2020-10-25 04:46] LABS: HEMATOCRIT 45.3 % (37.0-47.0); HEMOGLOBIN 14.9 gm/dL (12.0-15.0); NUCLEATED RBCS 0 /100WBC; PLATELET COUNT* 109 thou/uL (150-400); RBC 4.82 mil/uL (4.20-5.00)
[2020-10-25 05:29] LABS: ALBUMIN 2.9 g/dL (3.4-5.0); CALCIUM 8.6 mg/dL (8.5-10.1); CREATININE 0.8 mg/dL (0.6-1.3); MAGNESIUM 2.2 mg/dL (1.8-2.4); POTASSIUM 4.8 mmol/L (3.5-5.1); TOTAL BILIRUBIN 0.9 mg/dL (<0.1-1.0); TOTAL PROTEIN 5.2 g/dL (6.4-8.2)
--- NOTE | 2020-10-25 06:10 | NUR ---
PATIENT SLEPT MOST OF THE NIGHT. PATIENT REMAINS ON OXYGEN AT 9L HFNC AND BIPAP AT NIGHT. IV REMAINS SALINE LOCKED. PATIENT HAD NO COMPLAINTS OVERNIGHT. WILL CONTINUE TO MONITOR.
[2020-10-25 06:52] LABS: ABSOLUTE LYMPHOCYTES 0.6 thou/uL (0.8-5.3); ABSOLUTE NEUTROPHILS 7.4 thou/uL (1.6-8.1); PLATELET ESTIMATE ADEQUATE
--- NOTE | 2020-10-25 15:58 | NUR ---
PLAN OF CARE: PHYSICIAN INFORMS OF PLAN FOR THE PT TO D/C HOME TODAY WITH HH, HOME OXYGEN AND ASTRAL. PT AND DTR INFORMED. CM FAXED PT'S CLINCIAL ORDERS AND DME INFO TO [facility]. CM FAXED [facility] PT'S HH DC ORDERS. CM RECEIVED CALL FROM [facility] TO INFORM OF [employer]IL[employer] TO DISPENSE OXYGEN FOR PT PT'S INSURANCE IS ASKING FOR MEDICAL REVIEW OF REQUESTED OXYGEN D/T HIGH LITER FLOW NEED. PT'S D/C WILL NEED TO BE ON-HOLD UNTIL NEEDED DME IS APPROVED WITH PT'S INSURANCE. CM INFORMED THE RN AND PT'S DTR OF THIS. ALL ARE IN AGREEMENT. CM WILL REMAIN AVAILABLE TO ASSIST AND FOLLOW NEEDED.
[2020-10-26] VITALS: BP 132/74
[2020-10-26 04:00] VITALS: BP 138/74
--- NOTE | 2020-10-26 04:31 | NUR ---
ASSUMED PT CARE AT 1910. SR WITH [facility]CS ON AUTOMOBILE PAINTER. PT VOICED NO CONCERNS THIS SHIFT. FALL PRECAUTIONS IN PLACE. CALL LIGHT WITHIN REACH.
[2020-10-26 07:45] VITALS: BP 134/78
--- NOTE | 2020-10-26 10:40 | NUR ---
PLAN OF CARE: PLAN REMAINS FOR THE PT TO D/C HOME WITH HH POSSIBLY TODAY PENDING PT'S INSURANCE MEDICAL REVIEW FOR HOME OXYGEN AND TRILOGY. CM SPOKE TO [facility] TO GET UPDATE AND THEY INFORM THAT THEY WILL RETURN CALL WHEN APPROVAL HAS BEEN RECIEVED. [facility] HAS ACCEPTED PT AND WILL CONTACT HER DTR TO ARRANGE A TIME TO VISIT. CM WILL REMAIN AVAILABLE TO ASSIST AND FOLLOW NEEDED.
--- NOTE | 2020-10-26 11:35 | CON ---
[address] [address] CONSULTATION Name: JOSE LUIS WHYTE Room: [place] [address] ADM IN [facility].#: [id number] Admission: 10/07/20 Attend Phys: Kyle Read Discharge: Date of : 43 Report #: [id number] THIS REPORT FOR: cc: Jenni Branch MD, Kandice L. MD Khosla, Parveen K. MD ~ DATE OF CONSULTATION: 10/08/2020 HISTORY OF PRESENT ILLNESS: This is a 75-year-old female patient who is very difficult to evaluate. She does not trust the medical system, and when I questioned about her admission to [place], she just gets angry on the systems and just does not give the straight answer. The best I can tell, this patient says she had 6 strokes. She will not tell me how those strokes affected her. She does complain of some numbness on the right side, which predominantly happened in the right leg. She says she is functional and she has not lost any speech. She does not think there are any acute symptoms in that regard. REVIEW OF SYSTEMS: When I asked her why she came to the hospital, she says that it was because of the respiratory difficulty and that is confirmed by Emergency Room evaluation. She is oxygen dependent. She did have some cough. She had some chest tightness. She does not know what the cause of her stroke was, and when I asked her, she just got angry on the medical system and did not give me much answer to my questions. REVIEW OF SYSTEMS: I carried out the 14-point review of systems, the best I could carry out on this patient. She apparently has lung problems and that was her main complaint and that is the main complaint as per records also. The records also indicate that she has a history of pulmonary embolus. The rest of the review of system was noncontributory. PAST MEDICAL HISTORY: Positive for 6 strokes. FAMILY HISTORY: Unremarkable. SOCIAL HISTORY: She has history of smoking. PHYSICAL EXAMINATION: GENERAL: Difficult because the patient gets angry at the system, but she could tell me what month it is, but could not tell me what date it is. NEUROLOGIC: It looks like her memory is impaired. Speech looks intact. Concentration looks intact. Cranial nerve examination 2-12 looks mostly unremarkable. She did not cooperate that much with the sensory system examination. I do not think she has ataxia. I could not look at the fundus. CARDIAC: Examination appears noncontributory. LUNGS: [place] [address] CONSULTATION Name: JOSE LUIS WHYTE Room: [address] IN [facility]#: [id number] Admission: 10/07/20 Attend Phys: Kyle Read Discharge: Date of : 43 Report #: [id number] EXTREMITIES: She does not have any edema, cyanosis or jaundice. VITAL SIGNS: Blood pressure is 163/93, respirations 17, pulse is 91, temperature is 97.7. LABORATORY DATA: Sodium is normal. Her CT scan has shown probably old stroke, but they have raised some question. IMPRESSION: I think to determine if the patient has recent strokes or not, we need an MRI. I discussed that with the patient and discussed all options in that regard and she wants to proceed with it. We will set it up. If MRI shows some acute stroke, then we will do the recommendation. If MRI does not show any acute stroke, then I will talk to her because she does not look very enthusiastic to have workup done. Thank you very much for this referral. <ELECTRONICALLY SIGNED> By: Bryant Rosales MD 10/26/20 1135 [id number] [id number] Rosales MD /nt
[2020-10-26 12:21] VITALS: BP 112/56
[2020-10-26 13:56] VITALS: BP 102/51
--- NOTE | 2020-10-26 14:47 | NUR ---
D/C INSTRUCTIONS GIVEN. PT VERBLIZED UNDERSTANDING. PT D/C TO HOME IN WHEELCHAIR WITH SON IN LAW.
== END 2020-10-26 14:25 | disposition home health service (06) | DRG 64 ==
LOC: M.ERS 08:21 → M.TBA-ER 11:15 → M.2W 10-07 20:39
PROVIDERS: Emergency Medicine; Internal Medicine; Internal Medicine Critical Care Medicine; Psychiatry & Neurology Neuromuscular Medicine; ADMIT Internal Medicine; ATTEND Internal Medicine
DX: I63.89 Other cerebral infarction (principal); I26.99 Other pulmonary embolism without acute cor pulmonale; J96.21 Acute and chronic respiratory failure with hypoxia; J15.9 Unspecified bacterial pneumonia; G93.41 Metabolic encephalopathy; I16.1 Hypertensive emergency; E87.3 Alkalosis; Q21.1 Atrial septal defect; J44.1 Chronic obstructive pulmonary disease with (acute) exacerbation; J44.0 Chronic obstructive pulmonary disease with (acute) lower respiratory infection; I27.20 Pulmonary hypertension, unspecified; A53.9 Syphilis, unspecified; R25.2 Cramp and spasm; I11.0 Hypertensive heart disease with heart failure; J84.10 Pulmonary fibrosis, unspecified; I50.9 Heart failure, unspecified; Z20.822 Contact with and (suspected) exposure to COVID-19; Z79.899 Other long term (current) drug therapy; Z87.891 Personal history of nicotine dependence; Z86.73 Personal history of transient ischemic attack (TIA), and cerebral infarction without residual deficits